=== PATIENT | male | born 1975 | race Caucasian/White ===

== ENCOUNTER 2024-04-16 06:10 | Observation (INO) ==
--- NOTE | 2024-03-30 13:54 | PAT Medication Instructions ---
Medication Instructions Date of Service March 30, 2024 Home Medications Fish Oil 2 cap PO QAM cholecalciferol (vitamin D3) 125 mcg (5,000 unit) tablet (Vitamin D3) 125 mcg PO QAM folic acid 1.5 mg PO QAM methotrexate sodium 2.5 mg tablet See Rx Instructions .Route .COMPLEX STOP taking 2 weeks before surgery (or as soon as possible if surgery is within 2 weeks) Fish Oil 2 cap PO QAM STOP 7 days prior to surgery (if okay with prescriber) methotrexate sodium 2.5 mg tablet See Rx Instructions .Route .COMPLEX DO NOT take the morning of surgery cholecalciferol (vitamin D3) 125 mcg (5,000 unit) tablet (Vitamin D3) 125 mcg PO QAM folic acid 1.5 mg PO QAM Other Notes MORNING OF SURGERY: NOTHING TO EAT OR DRINK AFTER MIDNIGHT If you have any questions please call us at [phone] or [phone] or [phone] or [phone]
--- NOTE | 2024-04-06 09:16 | Anesthesiology Consultation ---
Date of Service April 06, 2024 Assessment & Plan (1) Encounter for pre-operative examination: - Infectious disease screening: Per assessment on 04/06/24- No known recent infectious disease contacts or current infectious disease symptoms. - Patient acceptable risk for surgery pending surgeon-ordered PCP preop evaluation (Dr Yvonne Fermin, appt done 04/05). Chart Review Chart Review: Patient seen in Pre Admission Testing Teaching & Discussion Pre-Anesthesia Teaching/Discussion Notes: Instructed NPO after midnight before surgery,except medications with 15 cc of water. Medication instructions provided according to the PAT guidelines. History Surgery Operation Date: 04/16/24 07:45 Proposed Procedures p C3-C7 Anterior Cervical Discectomy Fusion, Spinal Cord Monitoring - Davide Miller, Height/Weight Height: 5 ft 6 in Weight: 73.9 kg Allergies Allergy/AdvReac Type Severity Reaction Status Date / Time No Known Allergies Allergy Verified 03/26/24 11:25 Medications Home Medications Medication Instructions Recorded Confirmed Last Taken Fish Oil 2 cap PO QAM 03/26/24 03/26/24 Unknown cholecalciferol (vitamin D3) 125 125 mcg PO QAM 03/26/24 03/26/24 Unknown mcg (5,000 unit) tablet (Vitamin D3) folic acid 1 mg PO QAM 03/26/24 04/06/24 Unknown methotrexate sodium 2.5 mg tablet See Rx Instructions .Route .COMPLEX 03/26/24 03/26/24 Unknown Past Medical History Medical History Acid reflux Occasionally Bilateral tinnitus DDD (degenerative disc disease), cervical ROM limitations (looking up and left to right) per patient Frequent headaches History of kidney stones Passed on own Hypotension "Slightly" per patient Psoriatic arthritis [facility] Taking MTX Exercise / Class Metabolic Activity II 4-5 Yardwork/Stairs/Walk up hill (one FS: No CP, no SOB) Past Surgical History Surgical History Hx of hernia repair Age 9 months Hx of wisdom tooth extraction Past Anesthesia History No Hx of Anesthesia Complications and No Family Hx of Anesthesia Complications History of PONV No Hx of PONV and Hx of Motion Sickness Social History Smoking Status: Former smoker Do You Dip or Chew Tobacco: No (Quit 6 weeks ago) Smoking End Date: Quit 6 weeks ago Hx Alcohol Use: Yes Alcohol type: beer alcohol intake frequency: holidays/special occasions only Hx Substance Use: No substance use type: does not use Review of Systems Patient denies chest pain, shortness of breath, dyspnea on exertion, fever, chills, cough, wheezing, palpitations. Physical Exam Vital Signs BP 110/74 P 59 TEMP 98.1 SP02 98%RA RESP 16 Physical Mildly decreased cervical extension range of motion. Full TMJ range of motion. TMD > 3.5 finger breaths Mallampati Score II Dentition: upper partial Lungs: clear throughout to auscultation Cardiac: regular rate and rhythm, no murmurs noted Spine: normal Carotid arteries: negative bruit Extremities: no LE edema Lab Results Anesthesia Preop Results Results Anesthesia Widget: WBC 6.89 K/ul (4.8-10.8) 04/06/24 Hgb 15.1 g/dl (14.0-18.0) 04/06/24 Hct 43.5 % (42.0-52.0) 04/06/24 Plt 237 K/uL (130-400) 04/06/24 Na 140 mmol/L (136-145) 04/06/24 K 4.7 mmol/L (3.5-5.1) 04/06/24 Cl 107 mmol/L (98-107) 04/06/24 CO2 29 mmol/L (21-32) 04/06/24 BUN 15 mg/dl (6-23) 04/06/24 Creat 0.98 mg/dl (0.6-1.4) 04/06/24 Glucose Level 106 mg/dl (70-99(Fasting)) H 04/06/24 PT 10.3 Seconds (9.0-12.0) 04/06/24 PTT 28 Seconds (21-31) 04/06/24 INR 0.9 (0.9-1.1) 04/06/24 Urine Color Yellow 04/06/24 Urine Appearance Clear (Clear) 04/06/24 Urine pH 7.0 (4.5-7.5) 04/06/24 Urine Specific [place] 1.007 (1.000-1.030) 04/06/24 Urine Protein Negative (Negative) 04/06/24 Urine Glucose (UA) Negative (Negative) 04/06/24 Urine Ketones Negative (Negative) 04/06/24 Urine Blood Negative (Negative) 04/06/24 Urine Nitrite Negative (Negative) 04/06/24 Urine Bilirubin Negative (Negative) 04/06/24 Urine Urobilinogen Negative (Negative) 04/06/24 Urine Leukocyte Esterase Negative (Negative) 04/06/24 Blood Type O Positive 04/06/24 Antibody Screen NEGATIVE 04/06/24 Testing Electrocardiogram Date: 04/06/24 SB at 56bpm. "Otherwise normal ECG" Chest X-Ray Date: 04/06/24 IMPRESSION: Mildly prominent broncho vascular markings, non specific. No acute cardiopulmonary abnormalities were identified.
[2024-04-16] MEDS ORDERED: MIDAZOLAM HCL 1 MG/ML 2ML VIAL ONE (06:40)
[2024-04-16] MEDS ORDERED: fentaNYL citrate PF 100 MCG/2 ML VIAL ONE (06:41)
[2024-04-16] MEDS ORDERED: LIDOCAINE 2% 2 ML VIAL/AMP(20MG/ML) INFIL ONE (06:41)
[2024-04-16] MEDS ORDERED: PROPOFOL IV EMULSION 10 MG/ML 20 ML VIAL IV ONE (06:43)
[2024-04-16] MEDS ORDERED: ROCURONIUM BROMIDE 10 MG/ML 5 ML VIAL IV ONE ×4 (06:44→09:06)
[2024-04-16] MEDS ORDERED: DEXAMETHASONE SOD INJ 4 MG/ML VIAL ONE (06:59)
[2024-04-16] MEDS ORDERED: ONDANSETRON INJ 2 MG/ML 2 ML VIAL ONE (06:59)
[2024-04-16] MEDS: GABAPENTIN 900 MG DOSE PO SCH (07:02)
[2024-04-16] MEDS: ACETAMINOPHEN 500 MG TAB PO SCH (07:03)
[2024-04-16] MEDS: CeleBREX 200 MG CAP PO SCH (07:04)
[2024-04-16] MEDS ORDERED: ATROPINE SULFATE 0.1 MG/ML 10ML SYR IV PRN (07:11)
[2024-04-16] MEDS ORDERED: PROMETHAZINE HCL 6.25 MG in SODIUM CHLORIDE 0.9% 50 ML IV PRN (07:11)
[2024-04-16] MEDS ORDERED: HYDROmorphone INJ 1 MG/ML SYRINGE IV PRN ×2 (07:11→11:21)
[2024-04-16] MEDS ORDERED: ePHEDrine sulfate 50 MG/ML AMP IV PRN (07:11)
--- NOTE | 2024-04-16 07:39 | History & Physical Bridge Note ---
Date of Service April 16, 2024 History & Physical Bridge Note I have examined the patient, reviewed the History & Physical and in the interval since the performance of the History & Physical I have noted the following changes of clinical significance: no changes noted
--- NOTE | 2024-04-16 07:40 | History & Physical Report ---
Date of Service April 16, 2024 Assessment & Plan (1) Cervical stenosis of spinal canal: Plan: Anterior cervical discectomy and fusion C3-C7 History of Present Illness Chief Complaint: Neck and arm pain Primary Care Provider: Yvonne Fermin This is a 49-year-old male presents with chronic persistent neck and arm pain a failed course of nonoperative care is here for surgical invention. Allergies Allergy/AdvReac Type Severity Reaction Status Date / Time No Known Allergies Allergy Verified 03/26/24 11:25 Home Medications Medication Instructions Recorded Confirmed Type Fish Oil 2 cap PO QAM 03/26/24 04/16/24 History cholecalciferol (vitamin D3) 125 125 mcg PO QAM 03/26/24 04/16/24 History mcg (5,000 unit) tablet (Vitamin D3) folic acid 1 mg PO QAM 03/26/24 04/16/24 History methotrexate sodium 2.5 mg tablet See Rx Instructions .Route .COMPLEX 03/26/24 04/16/24 History Past Med/Surg History Problem List (Updated 04/16/24 @ 07:40 by Davide Miller DO) Cervical stenosis of spinal canal Encounter for pre-operative examination Medical History Acid reflux Occasionally Bilateral tinnitus DDD (degenerative disc disease), cervical ROM limitations (looking up and left to right) per patient Frequent headaches History of kidney stones Passed on own Hypotension "Slightly" per patient Psoriatic arthritis [facility] Taking MTX Surgical History Hx of hernia repair Age 9 months Hx of wisdom tooth extraction Social History Smoking Status: Former smoker Smoking End Date: Quit 6 weeks ago; Second Hand Exposure: No; Do You Dip or Chew Tobacco: No (Quit 6 weeks ago); Tobacco Cessation Education Requested by Patient: No Hx Alcohol Use: Yes Alcohol type: beer Hx Substance Use: No Preferred Language: Armenian Communication Ability: Effective Sewer Cleaner Required: No Beliefs That Will Affect Care: None Current Living Situation: Significant Other Other Information That Helps Us Care for You: No Feels Safe at Home: Yes Safety Concerns: Feels Safe At This Time Assistive Devices: Glasses and Other Assistive Devices Comment: Upper Partial Physical Exam Physical Exam: Patient is alert and oriented heart regular in rhythm Lungs clear Results & Data Results & Data Vital Signs (Past 12 Hours) Vital Signs Temp Pulse Resp BP Pulse Ox O2 Del Method 04/16/24 06:48 36.8 C 69 18 115/80 96 Room Air
[2024-04-16] MEDS: ceFAZolin 2000MG 2,000 MG/15 ML SYR IV SCH ×2 (07:47→14:35)
[2024-04-16] MEDS ORDERED: KETAMINE HCL 10MG/ML SYR ONE (08:15)
[2024-04-16] MEDS ORDERED: HYDROmorphone INJ 2 MG/ML SYR/VIAL ONE (08:15)
[2024-04-16] MEDS: ceFAZolin 330 MG/ML 1 GM VIAL ONE (08:17)
[2024-04-16] MEDS: FLOSEAL HEMOSTATIC MATRIX 10ML TOP ONE (08:18)
[2024-04-16] MEDS: LR 60ML/HR IV SCH (08:23)
[2024-04-16] MEDS ORDERED: SODIUM CHLORIDE 0.9% PF INJ 10 ML VIAL ONE (09:13)
[2024-04-16] MEDS ORDERED: PHENYLEPHRINE HCL 10 MG/ML VIAL ONE (09:13)
[2024-04-16] MEDS ORDERED: ePHEDrine sulfate 50 MG/5 ML SYR ONE (09:13)
[2024-04-16] MEDS ORDERED: SUGAMMADEX SODIUM 200 MG/2 ML VIAL IV ONE (09:27)
--- NOTE | 2024-04-16 09:35 | Operative Report ---
Post Operative Report Pre & Post Diagnosis Operation Date: 04/16/24 07:45 Pre-Op diagnosis: Cervical spinal stenosis with radiculopathy. Postop diagnosis: Same I identified the patient and participated in the time-out.: Yes Procedure Operation Date: 04/16/24 07:45 #1 anterior cervical discectomy with bilateral foraminotomies C4-C5, see 5 C6 and C6-C7. #2 anterior cervical arthrodesis C4-C5, C5-C6 and C6-C7. #3 placement of Spira 8 mm cage at C4-C5, 7 mm cage at C5-C6 and 8 mm cage at C6- C7. All cages filled with os design bone graft. #4 application of plate and screws from C4-C7. Surgeon Davide Miller, Slot Host Arie Clemons Estimated Blood Loss 25 Findings Consistent with Post-Op Diagnosis Specimens None Indications This is a 49-year-old male presents publish diagnosis of failed course of nonoperative care is here for surgical invention. Description of Procedure Patient was met with identified informed consent obtained. Patient was then taken to the operative suite underwent and patient placed in the supine position the Ruel table head Clarke head over. All bony prominences well-padded eyes inspected to ensure no external pressure placed upon them. This point the anterior cervical spine was prepped and draped in the normal sterile fashion. With assistance of fluoroscopy identified the C5-6 vertebral body. A transverse incision was placed along the right anterior aspect of the cervical spine overlying this region. Blunt dissection with the assistance of bipolar electrocautery was performed down to and exposing the anterior cervical spine from C4 to C7. This obtained retractors placed. Then performed a complete discectomy of C 4-C5 was performed [place] distractor pins utilized to assist in visualization. Removed all posterior annular fibers longitudinal ligament bilateral foraminotomies performed. 8 mm Spira cage filled with os design bone graft was then tapped into position. I then proceeded to C5-C6. Again complete discectomy performed without uncovertebral joints bilaterally. [place] distracting pins again utilized. Removed all posterior annular fibers longitudinal ligament bilateral foraminotomies performed. Endplates burred to subcortical and bone and a 7 mm Spira cage filled with os design bone graft tapped in position. And then proceeded to C6-C7. Again complete discectomy performed up to the angle of the joints bilaterally. [place] distracting pins again utilized. Removed all posterior annular fibers longitudinal ligament bilateral foraminotomies performed. Endplates burred to subcortical bleeding bone and an 8 mm spiral cage filled with os design bone graft tapped in position. Distracting and pressors removed. All anterior osteophytes burred to smooth cortical surface. Plate and screws then applied with the assistance of fluoroscopy. The incision was then copiously irrigated explored to ensure no damage to surrounding structures or remaining bleeding. 10 round YONATAN drain inserted. The incision was then closed with 2 Vicryl in the fascia and a 4 Monocryl for final skin closure. Steri-Strips sterile dressings placed. Patient waken taken to PACU stable condition. Please note Arie Clemons was present at the entire procedure involved the patient positioning complex portions of the surgery and final skin closure. Spinal cord monitoring was utilized throughout the procedure no changes noted. Im ordering 10 grams of Triple Siloam Collagen Powder ([employer] [id number]) to treat an incision wound that was caused by a spine procedure. The incision is approximately 2 cm(W) x 4 cm(L) into the joint (D) in size and is a full thickness wound. Triple Siloam collagen comes in 1 gram packets so 10 packets were ordered. Given the size of the wound, with light to moderate exudate I chose to order a 10 day supply. The patient will be provided instructions for proper application of the collagen wound kit. The patient will be asked to apply the collagen powder daily and then cover it with sterile dressings dispensed. Collagen was selected as I expect the collagen to attract monocytes and fibroblasts, act as a sacrificial substrate for MMPs, and ultimately proved a matrix for tissue and vessel growth. The collagen will act as a primary dressing in this scenario. It is medically necessary for proper healing of these wounds to improve bioavailability and contact with each wound surface, this is also to help prevent infection of wounds and promote healing ultimately leading to a better healing outcome and limit the risk of infection. I attest to the content of the Intraoperative Record and any orders documented therein. Any exceptions are noted below.
--- NOTE | 2024-04-16 10:04 | Fluoroscopy Report ---
FL cervical 2-3V CLINICAL HISTORY: C4-C7 ACDF COMPARISON STUDY: None. FLUOROSCOPY TIME: 12 seconds. Ka,r: 1.10 mGy FLUOROSCOPIC IMAGES: 2 FINDINGS: Fluoroscopy was provided during C4-C7 anterior discectomy and fusion. Hardware is intact. T here are no unexpected radiopaque foreign bodies. IMPRESSION: Fluoroscopy provided during C4-C7 anterior discectomy and fusion. ACT 112: Negative or not required by law. Electronically signed by: Juve Suarez M.D. 04/16/2024 10:02 AM
[2024-04-16] MEDS: fentaNYL citrate PF 100 MCG/2 ML VIAL IV PRN (10:39)
[2024-04-16] MEDS ORDERED: DO NOT ADMINISTER PNEUMOCOCCAL VACCINE PRN (11:21)
[2024-04-16] MEDS ORDERED: NALOXONE HCL 0.4 MG/1 ML VIAL/CARP IV PRN (11:21)
[2024-04-16] MEDS ORDERED: LORazepam 0.5 MG TAB PO PRN (11:21)
[2024-04-16] MEDS ORDERED: traMADol HCL 50 MG TABLET PO PRN (11:21)
[2024-04-16] MEDS ORDERED: SOD PHOSPHATE/SOD BIPHOSPHATE ENEMA 132 ML BTL PR PRN (11:21)
[2024-04-16] MEDS ORDERED: bisacodyL 10 MG SUPP PR PRN (11:21)
[2024-04-16] MEDS ORDERED: MAGNESIUM HYDROXIDE SUSP 30 ML UDC PO PRN (11:21)
[2024-04-16] MEDS ORDERED: ONDANSETRON 4 MG OD TAB PO PRN (11:21)
[2024-04-16] MEDS ORDERED: hydrOXYzine HCl 25 MG TAB PO PRN (11:21)
[2024-04-16] MEDS ORDERED: RACEPINEPHRINE 2.25% NEBU SOLN 0.5 ML VIAL INH PRN (11:21)
[2024-04-16] MEDS ORDERED: diphenhydrAMINE Capsule 25 MG CAP PO PRN (11:21)
[2024-04-16] MEDS ORDERED: LORazepam 2 MG/1 ML VIAL IV PRN (11:21)
[2024-04-16] MEDS ORDERED: dexAMETHasone 8 MG in SYRINGE 0 ML IV PRN (11:21)
[2024-04-16] MEDS ORDERED: DO NOT ADMINISTER FLU VACCINE PRN (11:21)
[2024-04-16] MEDS ORDERED: HYDROmorphone INJ 0.5 MG/0.5 ML SYR IV PRN (11:21)
[2024-04-16] MEDS ORDERED: FAMOTIDINE 20 MG TAB PO PRN (11:21)
[2024-04-16] MEDS ORDERED: ALUMINUM/MAGNESIUM SUSP 30 ML UDC PO PRN (11:21)
[2024-04-16] MEDS ORDERED: ACETAMINOPHEN 500 MG TAB PO PRN (11:21)
[2024-04-16] MEDS: oxyCODONE HCL IR 5 MG TAB (IMMEDIATE RELEASE) PO PRN (11:33)
[2024-04-16] MEDS: FAMOTIDINE/PF 20 MG/2 ML VIAL IV ONE (11:40)
[2024-04-16] MEDS: LR 15ML/HR IV SCH (11:41)
[2024-04-16] MEDS: ONDANSETRON INJ 2 MG/ML 2 ML VIAL IV PRN ×2 (11:46→16:56)
[2024-04-16] MEDS: METOCLOPRAMIDE HCL INJ 5 MG/ML 2 ML VIAL IV PRN (13:42)
--- NOTE | 2024-04-16 14:42 | Anesthesiology Progress Note ---
Date of Service April 16, 2024 Anesthesia Post Procedure Vital Signs Vital Signs: Temp Pulse Pulse Pulse Resp BP Pulse Ox 04/16/24 14:18 37.0 C 70 16 126/82 97 04/16/24 13:35 36.4 C L 80 17 143/80 H 96 04/16/24 13:15 36.4 C L 94 H 16 123/76 95 04/16/24 12:20 36.5 C 67 16 126/81 94 04/16/24 12:03 72 16 94 04/16/24 11:56 36.3 C L 69 16 132/87 93 04/16/24 11:21 36.4 C L 81 18 134/79 97 04/16/24 11:00 36.4 C L 85 12 129/84 97 04/16/24 10:50 76 20 123/85 100 04/16/24 10:40 77 13 137/88 96 04/16/24 10:30 93 H 13 134/90 96 04/16/24 10:20 76 14 133/86 95 04/16/24 10:10 79 15 135/85 96 04/16/24 10:00 80 12 127/82 100 04/16/24 09:50 36.0 C L 70 13 126/84 100 04/16/24 06:48 36.8 C 69 18 115/80 96 O2 Del Method O2 Flow Rate 04/16/24 14:18 Room Air 04/16/24 13:35 Room Air 04/16/24 13:15 Room Air 04/16/24 12:20 Room Air 04/16/24 12:03 Room Air 04/16/24 11:56 Room Air 04/16/24 11:21 Room Air 04/16/24 11:00 Room Air 04/16/24 10:50 Room Air 04/16/24 10:40 Room Air 04/16/24 10:30 Room Air 04/16/24 10:20 Room Air 04/16/24 10:10 Room Air 04/16/24 10:00 Oxymask 6 04/16/24 09:50 Oxymask 6 04/16/24 06:48 Room Air Pain Intensity Neck: Pain Intensity: 3 Transfer of Care Handoff Completed per policy Notes Mental Status: alert / awake / arousable and participated in evaluation Patient Amnestic to Procedure: Yes Nausea / Vomiting: adequately controlled Pain: adequately controlled Airway Patency, RR, SpO2: stable & adequate BP & HR: stable & adequate Hydration State: stable & adequate Anesthetic Complications: no major complications apparent and Pt Satisfied with anesthetic care
[2024-04-16] MEDS ORDERED: SCOPOLAMINE 1 MG TDSY TD SCH (15:30)
[2024-04-16] MEDS: SODIUM CHLORIDE 0.9% 1,000 ML IV SCH (15:30)
[2024-04-16] MEDS ORDERED: CHECK SCOPOLAMINE PATCH PLACEMENT SCH (16:00)
[2024-04-16] MEDS: CHECK SCOPOLAMINE PATCH PLACEMENT SCH (16:11)
[2024-04-16] MEDS: SCOPOLAMINE 1 MG/72 HR TDSY PATCH TD SCH (16:11)
[2024-04-16] MEDS: PROMETHAZINE 12.5 MG/50.5 ML BAG IV PRN (17:42)
[2024-04-16] MEDS: ACETAMINOPHEN 1,000 MG/100 ML VIAL IV PRN (17:57)
--- NOTE | 2024-04-16 19:41 | Hospitalist Consultation ---
Date of Consultation April 16, 2024 Assessment & Plan (1) Cervical stenosis of spinal canal: -Anterior cervical discectomy and fusion C3-C7 done on 04/16/24. -Continue pain management per surgical team. -Continue postoperative care per surgical team. (2) Nausea: -Patient with nausea and vomiting after surgery. -Patient has a scopolamine patch currently. -Zofran, Phenergan, Reglan, Pepcid, on as needed. -Docusate will be given tonight. Dulcolax suppository as needed -Will trial clear liquid diet in the a.m. and advance as tolerated. (3) Poor fluid intake: -Poor fluid intake after surgery. -Continue on NSS overnight. -Patient has not had any bowel movement since surgery or flatulence. Most likely secondary to poor oral intake. Should reassess in the AM. -Will trial with diet in the a.m. (4) Psoriatic arthritis: -Continue to hold methotrexate. Supervising Physician Co-Signing Physician Notes Attending addendum: I have physically seen this patient, have supervised the medical residents activities, and agree with the H&P unless as otherwise noted. Assessment and Plan: Status post anterior cervical discectomy and fusion C3-C7-- Pain management and postoperative care per surgical team Nausea and vomiting- Began postoperatively Benign examination Zofran 4 mg IV every 6 hours as needed Phenergan 12.5 mg IV every 6 hours as needed Famotidine 20 mg IV every 12 hours Dulcolax suppository this evening and daily as needed Trial of clear liquid diet to begin a.m. as Continue NSS overnight Psoriatic arthritis- Cetraxate as outpatient [facility] Hospitalist service will follow along during hospital stay History of Present Illness Reason for Consultation: Nausea, poor fluid intake Requesting Physician: Dr. Miller Attending Physician: Davide Miller, DO History of Present Illness Patient is a 49-year-old male with past medical history of psoriatic arthritis who is admitted to the hospital for a C4-C7 anterior cervical discectomy fusion done by Dr. Miller on 04/16/2024. Patient started to have some nausea and vomiting after trying some clear liquid diet for dinner. Patient was seen bedside and is currently comfortable after getting promethazine. States that he is no longer having any nausea. Denies any chest pain, abdominal pain, or issues with the surgery. Denies any bowel movement since surgery or passing any gas. Allergies Allergy/AdvReac Type Severity Reaction Status Date / Time No Known Allergies Allergy Verified 03/26/24 11:25 Home Medications Medication Instructions Recorded Confirmed Type Fish Oil 2 cap PO QAM 03/26/24 04/16/24 History cholecalciferol (vitamin D3) 125 125 mcg PO QAM 03/26/24 04/16/24 History mcg (5,000 unit) tablet (Vitamin D3) folic acid 1 mg PO QAM 03/26/24 04/16/24 History methotrexate sodium 2.5 mg tablet See Rx Instructions .Route .COMPLEX 03/26/24 04/16/24 History oxycodone 5 mg tablet 5 mg PO Q6H PRN pain #20 tabs 04/16/24 Rx tramadol 50 mg tablet 50 mg PO Q6H PRN pain, moderate 04/16/24 Rx #30 tabs Patient History Medical History Acid reflux Occasionally Bilateral tinnitus DDD (degenerative disc disease), cervical ROM limitations (looking up and left to right) per patient Frequent headaches History of kidney stones Passed on own Hypotension "Slightly" per patient Psoriatic arthritis [facility] Taking MTX Surgical History Hx of hernia repair Age 9 months Hx of wisdom tooth extraction Social History Smoking Status: Former smoker Second Hand Exposure: No; Do You Dip or Chew Tobacco: No (Quit 6 weeks ago); Hx Alcohol Use: Yes Alcohol type: beer Hx Substance Use: No Preferred Language: Estonian Communication Ability: Effective Mentally Retarded Teacher Required: No Beliefs That Will Affect Care: None Current Living Situation: Significant Other Feels Safe at Home: Yes Assistive Devices: Glasses and Other Review of Systems Review of Systems: All systems reviewed & are unremarkable except as noted in Subjective Physical Exam Constitutional: WD/WN, vitals as above Respiratory: normal respiratory effort, lungs clear to auscultation Cardiovascular: RRR, no murmur, no edema Gastrointestinal (Abdomen): normal bowel sounds, soft, nontender, no hepatosplenomegaly Skin: no rashes, warm and dry Results & Data Results & Data Vital Signs (Past 12 Hours) Vital Signs Temp Pulse Pulse Resp BP Pulse Ox O2 Del Method 04/16/24 18:04 73 16 96 Room Air 04/16/24 17:50 37.1 C 77 18 128/84 98 Room Air 04/16/24 16:18 36.6 C 75 120/74 97 Room Air 04/16/24 14:52 82 18 98 Room Air 04/16/24 14:18 37.0 C 70 16 126/82 97 Room Air 04/16/24 13:35 36.4 C L 80 17 143/80 H 96 Room Air 04/16/24 13:15 36.4 C L 94 H 16 123/76 95 Room Air 04/16/24 12:20 36.5 C 67 16 126/81 94 Room Air 04/16/24 12:03 72 16 94 Room Air 04/16/24 11:56 36.3 C L 69 16 132/87 93 Room Air 04/16/24 11:21 36.4 C L 81 18 134/79 97 Room Air 04/16/24 11:00 36.4 C L 85 12 129/84 97 Room Air 04/16/24 10:50 76 20 123/85 100 Room Air 04/16/24 10:40 77 13 137/88 96 Room Air 04/16/24 10:30 93 H 13 134/90 96 Room Air 04/16/24 10:20 76 14 133/86 95 Room Air 04/16/24 10:10 79 15 135/85 96 Room Air 04/16/24 10:00 80 12 127/82 100 Oxymask 04/16/24 09:50 36.0 C L 70 13 126/84 100 Oxymask O2 Flow Rate 04/16/24 18:04 04/16/24 17:50 04/16/24 16:18 04/16/24 14:52 04/16/24 14:18 04/16/24 13:35 04/16/24 13:15 04/16/24 12:20 04/16/24 12:03 04/16/24 11:56 04/16/24 11:21 04/16/24 11:00 04/16/24 10:50 04/16/24 10:40 04/16/24 10:30 04/16/24 10:20 04/16/24 10:10 04/16/24 10:00 6 04/16/24 09:50 6
[2024-04-16] MEDS: DOCUSATE SODIUM/SENNA 50/8.6MG TAB PO SCH (20:16)
[2024-04-17] MEDS: POLYETHYLENE (MIRALAX) 17 GM PACK PO SCH (05:58)
[2024-04-17 07:15] VITALS: RESP 16; O2SAT 97
[2024-04-17 07:37] VITALS: BP 132/89; PULSE 73; TEMP 98.2
[2024-04-17] MEDS: FOLIC ACID 1 MG TAB PO SCH (08:28)
[2024-04-17] MEDS: CHOLECALCIFEROL 125 MCG (5,000 UNITS) TAB PO SCH (08:28)
[2024-04-17] MEDS: dexAMETHasone 6 MG in SYRINGE 0 ML IV SCH (08:29)
--- NOTE | 2024-04-17 09:17 | Discharge Summary ---
Date of Service April 17, 2024 Admission HPI Per Admitting Provider This is a 49-year-old male presents with chronic persistent neck and arm pain a failed course of nonoperative care is here for surgical invention. Principal Diagnosis Cervical spinal stenosis with radiculopathy Discharge Data Allergies Allergy/AdvReac Type Severity Reaction Status Date / Time No Known Allergies Allergy Verified 03/26/24 11:25 Consultations 04/16/24 19:18 Consult Hospitalist Routine Procedures Performed Operation Date: 04/16/24 07:45 Actual Procedures p C4-C7 Anterior Cervical Discectomy Fusion, Spinal Cord Monitoring(Not Applicable) - Davide Miller DO Ordered Studies 04/16/24 07:45 FL cervical 2-3V Routine Hospital Course (1) Cervical stenosis of spinal canal: Patient is status post multilevel anterior cervical discectomy fusion tolerated as well as taken orthopedic for postoperative postoperatively swallowing well. No hoarseness. Nausea is resolved. Extra strength testing. YONATAN drain decreasing. Subsidy discharged home. Discharge orders instructions from the chart for further view. Total Time Total Time Spent Total Time Spent (In Minutes): 20 minutes Discharge Plan Discharge Items Patient Disposition: Home - Self-Care Reason For Visit: POSTOP Discharge Diagnosis: Cervical spinal stenosis with radiculopathy Activity: As commented below Non-emergency contact: Primary Care Provider Call non-emergency contact if: you have any medication questions Follow-up/Referrals: Yvonne Fermin D.ONetta [Primary Care Provider] - Diet: Regular Addtl Attending Provider Instructions: ACTIVITY RECOMMENDATIONS: SELF CARE INSTRUCTIONS AFTER CERVICAL FUSIONS 1. No smoking. Smoking drastically decreases the chance of a solid fusion. 2. No bending, lifting more than 5 pounds, or twisting (roll like a log when turning in bed). 3. You may shower 3 days after surgery. Thoroughly dry wound. Do not soak in the tub. 4. Cervical collar: Must be worn at all times including sleeping. You may remove the brace only to bath, eat and if you are sitting in a recliner. 5. Please walk as much as you can for exercise. Gradually increase the distance that you walk as your endurance increases. 6. You may return to previous diet. SPECIAL CARE INSTRUCTIONS: VERY IMPORTANT TO READ AND REVIEW A. Do not take any anti-inflammatory medications (i.e. Indocin, Advil, Aspirin, Naprosyn, Aleve, Motrin, etc.) as these may inhibit the chance of a solid fusion. Tylenol is okay to take. B. Your surgical incision has been closed with a cosmetic suture under the skin that will dissolve in about 6 weeks. In 14 days, you can use a pair of clean scissors and cut the suture that is left outside of the skin at the ends of your incision. C. Complications are uncommon, but please contact us if you have any signs or symptoms of: 1. wound infection (fever higher than 102.5 degrees F, redness, separation of wound, drainage, or increasing pain from the incision) 2. blood clots in legs (pain, swelling, redness and warmth in legs) 3. urinary tract infection (fever higher than 102.5 degrees, burning upon urination or increased frequency of urination) 4. nerve problems (inability to walk on your toes or heels, numbness, loss of bowel or bladder control) 5. any other symptoms that concern you. D. Please call the office at if you have any concerns or questions about your operation or recovery. MANAGING PAIN AFTER SPINAL SURGERY 1. Narcotic medication is intended for short-term use and will be provided for surgical pain. Surgical pain usually lasts for a period of 4-6 weeks. Narcotic medication includes Percocet, Vicodin, Darvocet, Tylenol #3 or Lortab. 2. Longer-term pain is more appropriately treated with non-narcotic medication such as Tylenol ES. 3. Muscle spasm is not appropriately treated with narcotics. Muscle relaxers such as Soma, Flexeril or Skelaxin can be used along with Tylenol ES. 4. Remember that we all live with some "aches and pains". This is not unusual or uncommon after an injury or as we get older. 5. We will provide appropriate medication within the normal guidelines of their prescribed use. We will also be very cautious and aware of potential abuse and extended duration of patients' medication needs. 6. Please allow 2-3 days to process refills. Prescriptions will not be mailed but must be picked up at the office. FOLLOW UP VISIT: Keep your scheduled follow-up appointment. Any questions, please call the office at . Pending Studies at Discharge: No Stand-Alone Forms: Proximex, Smoking Cessation Medications and DC Order Prescriptions: New tramadol 50 mg tablet 50 mg PO Q6H PRN (Reason: pain, moderate) Qty: 30 0RF oxycodone 5 mg tablet 5 mg PO Q6H PRN (Reason: pain) Qty: 20 0RF Continued cholecalciferol (vitamin D3) [Vitamin D3] 125 mcg (5,000 unit) Tablet 125 mcg PO QAM Fish Oil 2 cap PO QAM folic acid 1 mg PO QAM Held methotrexate sodium [Methotrexate (Anti-Rheumatic)] 2.5 mg Tablet See Rx Instructions .ROUTE .COMPLEX Rx Instructions: 2.5 mg orally ;7 Tabs on Tuesdays Discharge Orders: Discharge Order (Routine); Ordered 04/17/24 Ordered By: Davide Miller Admission Data Admit Date/Time: 04/16/24 09:37 Attending Provider: Davide Miller Admit Provider: Davide Miller Primary Care Provider: Yvonne Fermin Other Providers: Fabian Mcclain
--- NOTE | 2024-04-17 09:47 | Hospitalist Progress Note ---
Date of Service April 17, 2024 Assessment & Plan (1) Cervical stenosis of spinal canal: (2) Nausea: Plan Nausea / resolved Continue supportive care Constipation Continue bowel regimen s/p C3-C7 discectomy and fusion Management per spine surgery pain control Admission and Anticipated Discharge Date Admission Date: April 16, 2024 Subjective reports resolved nausea, passing gas but no BM yet, tolerated breakfast, pain controlled Physical Exam Physical Exam: well appearing YONATAN drain anterior neck Respiratory: clear to auscultation b/l Cardiovascular: RRR Gastrointestinal (Abdomen): soft, NT, ND, BS+ Results & Data Results & Data Vital Signs (Past 12 Hours) Vital Signs Temp Pulse Resp BP BP Pulse Ox O2 Del Method 04/17/24 07:37 36.8 C 73 16 132/89 97 Room Air 04/17/24 07:15 88 16 97 Room Air 04/17/24 06:00 36.6 C 71 18 131/79 98 Room Air 04/17/24 04:05 36.6 C 71 14 132/82 95 Room Air 04/17/24 03:07 91 H 16 99 Room Air 04/17/24 02:01 36.6 C 87 16 129/78 98 Room Air 04/17/24 00:11 36.4 C L 76 16 115/74 96 Room Air 04/16/24 23:57 96 H 17 98 Room Air 04/16/24 21:58 36.6 C 64 16 111/70 97 Room Air Laboratory Results reviewed PG Care Time/CCT Total # of Minutes Spent Total Time Spent with Patient: Total time spent is greater than 50% in coordination of care (as documented) at patient's floor/unit and/or counseling patient: Coding Level of Care Code 17218 SUB INP/OBS CARE 2/35MIN Diagnoses Cervical stenosis of spinal canal M48.02 Nausea R11.0
--- NOTE | 2024-04-17 20:13 | Billing Data ---
Date of Service April 17, 2024 Coding Level of Care Code 70866 IN/OBS CONSULT LVL 3,45M
== END 2024-04-17 11:06 | disposition home or self-care (01) ==
LOC: 3E 06:10 → ASU 06:10